=== PATIENT | female | born 1980 | race Caucasian/White ===

== ENCOUNTER → 2022-07-14 11:22 | Outpatient (CLI) | payer OTHER, SELFPAY ==
--- NOTE | 2022-07-14 | DI.MRI.S_ITS ---
PROCEDURE: MR HIP RT WO CON INDICATIONS: Pain in right hip/Rule out labral tear TECHNIQUE: Noncontrast coronal T1 spin echo and STIR through the bony pelvis. Coronal and axial T2 fast spin echo with fat saturation, sagittal T1 spin echo, and oblique axial T2 fast spin echo with fat saturation through the hip. COMPARISON: [facility], [place], XR PELVIS WITH LATERAL HIP RIGHT, 06/30/2022, 8:28. FINDINGS: Image quality: Excellent. Image quality: Excellent. Bones and joints: Bone marrow of the pelvic ring and proximal femurs show normal signal throughout. No intraosseous lesions or fractures. No avascular necrosis of the femoral heads. Mild degenerative changes of the pubic symphysis. Disc desiccation and facet hypertrophy are seen at the lower lumbar spine. There is a probable benign hemangioma in the L5 vertebral body. Tendons and ligaments: Mild distal gluteus medius and minimus tendinosis. The proximal iliotibial band appears intact. The iliopsoas tendon appears intact, without adjacent bursal fluid collections. The origin of the hamstring tendon demonstrates mild tendinosis. The direct and indirect heads of the rectus femoris muscle origin appear intact. Labrum and cartilage: Suspected small focal nondisplaced tear of the anterosuperior labrum (image 10 of series 7). No focal cartilage defect. There is normal morphology of the femoral head and the acetabulum. Soft tissues: Visualized muscles demonstrate normal bulk and internal signal. Quadratus femoris muscle demonstrates no internal edema to suggest ischiofemoral impingement. The proximal sciatic neurovascular bundle appears intact. The included portions of the pelvis demonstrate no acute abnormality. IMPRESSION: 1. Suspected small nondisplaced tear of the anterosuperior labrum. 2. Mild distal gluteus medius and minimus tendinosis. 3. Mild proximal hamstring tendinosis. 4. Degenerative are seen in the pubic symphysis and lumbar spine. Dictated by: Denys Daniel M.D. on 07/14/2022 at 17:34 Approved by: Denys Daniel M.D. on 07/14/2022 at 17:39
== END ==
PROVIDERS: PCP Student in an Organized Health Care Education/Training Program; Referring Provider Orthopaedic Surgery; Visit Provider Orthopaedic Surgery
DX: M25.551 Pain in right hip (principal); M47.816 Spondylosis without myelopathy or radiculopathy, lumbar region
CPT/HCPCS: 73721